=== PATIENT | male | born 1965 | race African-American/Black ===

== ENCOUNTER 2018-07-30 06:35 | Day surgery (SDC) | payer OTHER ==
[2018-07-28 17:34] VITALS: BMI 28.7
[2018-07-30 07:25] LABS: INR 1.03 (0.83-1.09); PROTHROMBIN TIME (PATIENT) 12.2 SEC (9.7-13.0)
[2018-07-30 07:28] LABS: ACTIVATED PTT 29.1 SECONDS (25.2-36.5)
[2018-07-30] MEDS ORDERED: PROPOFOL 20 ML ONE ×2 (07:56)
[2018-07-30] MEDS ORDERED: MIDAZOLAM HCL 2 MG/2 ML SINGLE DOSE VIAL ONE (07:56)
[2018-07-30] MEDS ORDERED: LIDOCAINE HCL/PF 2% SDV 5ML VIAL ONE (07:56)
[2018-07-30] MEDS ORDERED: LIDOCAINE HCL 2% (20ML MULTI-DOSE VIAL) NR ONE (08:07)
[2018-07-30] MEDS ORDERED: KETOROLAC TROMETHAMINE 30 MG/1 ML VIAL ONE (08:08)
[2018-07-30] MEDS ORDERED: LIDOCAINE HCL 2% (50ML VIAL) SQ ONE (08:19)
--- NOTE | 2018-07-30 08:29 | HP ---
Satellite H - Chief Complaint Chief Complaint: right foot mass - Past Medical History Allergies/Adverse Reactions: Allergies Allergy/AdvReac Type Severity Reaction Status Date / Time No Known Allergies Allergy Verified 07/28/18 17:27 - Current Medications Current Medications: Home Medications Medication Instructions Recorded Amlodipine Besylate 10 mg PO DAILY 07/28/18 Losartan/Hydrochlorothiazide 1 tab PO DAILY 07/28/18 [Losartan-Hctz 100-25 mg Tab] Albuterol Sulfate Inhaler - 1 - 2 inh PO PRN 07/30/18 [Ventolin HFA Inhaler -] Oxycodone HCl/Acetaminophen 1 tab PO Q6H #20 tablet MDD 4 07/30/18 [Percocet 5-325 mg Tablet] Satellite Physical Exam - Physical Examination Vital Signs: Vital Signs Period Temp Pulse Resp BP Sys/Dixon Pulse Ox Last 24 Hr 98.3 F-98.3 F 89-89 20-20 138-138/91-91 96 General Appearance: Well Nourished, Well Developed, Alert & Oriented x3 ENT: Clear Lung: Normal air movement Heart: Regular rate & rhythm Extremities: Other (right foot-+ mass, +ttp, nvi) Neurological: Intact, Alert, Oriented Satellite Impression/Plan - Impression/Plan Impression: right foot mass Operative Procedure: right foot mass excision Date to be Performed: 07/30/18
[2018-07-30] MEDS ORDERED: oxyCODONE HCL 5 MG TABLET PO PRN (08:40)
[2018-07-30] MEDS ORDERED: ONDANSETRON 4 MG/2 ML VIAL IVPUSH PRN (08:40)
[2018-07-30] MEDS ORDERED: LACTATED RINGERS SOLUTION 1,000 ML IV SCH (08:45)
--- NOTE | 2018-07-30 09:04 | OP ---
DATE OF OPERATION: 07/30/2018 PREOPERATIVE DIAGNOSIS: Mass, right foot. POSTOPERATIVE DIAGNOSIS: Mass, right foot. PROCEDURE: Excision of mass of right foot. SURGICAL ATTENDING: Benjie Parra MD ANESTHESIA: Local with IV sedation. CLOSURE: 2-0 Vicryl and 4-0 Monocryl and Steri-Strips. ESTIMATED BLOOD LOSS: Negligible. COMPLICATIONS: None. CONDITION: To recovery room in stable condition. DESCRIPTION OF OPERATIVE PROCEDURE: Patient was taken to the operating room on July 30, 2018. The right foot area was prepped and draped in the usual sterile fashion. IV sedation was administered by the anesthesiologist. The mass, which was a nodule in the subcutaneous tissue about the size of a marble was palpated through the skin and was infiltrated circumferentially with 1% lidocaine plain. A 2-3-cm longitudinal incision over the mass was incised. Hemostasis was achieved using Bovie cautery. A blunt dissection was used to surround the mass. The mass did have a stalk both proximally and distally, that was debrided back as far as possible. The mass was then excised, sent for pathology. The wound was irrigated, closed with 2-0 Vicryl, 4-0 Monocryl, and Steri-Strips. Sterile pressure dressing was applied. Patient was awakened from anesthesia and transferred to recovery in stable condition. No complications. Estimated blood loss negligible. Huma [id number]
[2018-07-30 10:16] VITALS: BP 119/67; PULSE 71; TEMP 97.8
--- NOTE | 2018-08-08 14:24 | PATH ---
Surgical Pathology Report Patient Name: JESUS GRIFFIN [facility]. Rec. #: [id number] /Age/Gender: 1965 (Age: 52) / M Account: [id number] Location: [facility] SURGICAL Taken: 07/30/2018 Received: 07/30/2018 Reported: 08/05/2018 Physicians: Benjie Parra M.D. Specimen(s) Received RIGHT FOOT MASS Clinical History Mass right foot Final Diagnosis MASS, RIGHT FOOT, EXCISION: CONSISTENT WITH SCHWANNOMA. Comment: Encapsulated tumor composed of spindle cells with wavy appearing nuclei. Immunohistochemical stained slides demonstrate tumor cells to be positive for S100, GFAP, YUNIOR (capsule), while negative for SMM, Melan A, and CD34. The morphology and immunophenotype support a diagnosis of schwannoma. Immunohistochemistry stains GFAP, YUNIOR, Melan A, and CD34 performed at [place], [place] ([id number]) interpreted at [facility]. Immunohistochemistry stains S100 and SMM performed and interpreted at [facility]. Positive and negative controls (internal if applicable) show appropriate results. Electronically Signed Jordon Hess M.D. Gross Description Received in formalin labeled "mass right foot," is a 2.0 x 1.1 x 1.0 cm unoriented portion of soft tissue. The outer surface is casey-pink and smooth. Sectioning reveals an encapsulated mass with homogeneous casey, smooth, solid parenchyma. The outer surface is inked blue and bilingual call center representative sections of the mass are submitted in one cassette. /07/30/2018 saudi07/30/2018
== END 2018-07-30 10:00 | disposition home or self-care (01) ==
LOC: JASU-SURG 06:35
PROVIDERS: ATTEND Orthopaedic Surgery
PROC: 0JBQ0ZZ Excision of Right Foot Subcutaneous Tissue and Fascia, Open Approach (ICD-10-PCS; principal; 2018-07-30 08:00)
DX: D21.21 Benign neoplasm of connective and other soft tissue of right lower limb, including hip (principal)
CPT/HCPCS: 36415; 85610; 85730; 88305-TC; 88341-TC; 88342-TC; 94760